=== PATIENT | female | born 1960 | race Caucasian/White ===

== ENCOUNTER 2025-01-18 13:36 | Emergency (ER) | payer MEDICAID ==
[~2025-01-18] VITALS: Ht 160 cm; Wt 69.0 kg
[~2025-01-18 13:36] MED LIST: CARB-32 MT
[2025-01-18 13:59] VITALS: O2SAT 94
[2025-01-18] MEDS ORDERED: ALBU90AE INH (15:33)
[2025-01-18 15:34] VITALS: BP 132/81; PULSE 84; RESP 18; TEMP 36.6; O2SAT 95
== END 2025-01-18 15:42 | disposition home or self-care (01) ==
LOC: ER 13:36
DX: J44.89 Other specified chronic obstructive pulmonary disease (principal); Z76.0 Encounter for issue of repeat prescription
CPT/HCPCS: 99281; 99282

== ENCOUNTER 2025-02-19 09:45 | Emergency (ER) | payer MEDICAID ==
[~2025-02-19] VITALS: Ht 160 cm; Wt 74.0 kg
[~2025-02-19 09:45] MED LIST changes: +ALBU90AE INH
[2025-02-19 10:01] VITALS: O2SAT 100
[2025-02-19] MEDS ORDERED: OLAN2.5T77 MT (10:28)
[2025-02-19] MEDS ORDERED: CITA10SO MT (10:28)
[2025-02-19] MEDS ORDERED: TIOT4MIS4 INH (10:28)
[2025-02-19] MEDS ORDERED: CARB-32 MT (10:28)
[2025-02-19 10:46] VITALS: BP 117/82; PULSE 67; RESP 16; TEMP 36.8; O2SAT 95
== END 2025-02-19 10:49 | disposition home or self-care (01) ==
LOC: ER 09:45
DX: F32.A Depression, unspecified (principal); J44.9 Chronic obstructive pulmonary disease, unspecified; G20.A1 Parkinson's disease without dyskinesia, without mention of fluctuations; Z76.0 Encounter for issue of repeat prescription; Z79.899 Other long term (current) drug therapy
CPT/HCPCS: 99281; 99283

== ENCOUNTER 2025-04-19 12:22 | Emergency (ER) | payer MEDICAID ==
[~2025-04-19] VITALS: Ht 160 cm; Wt 60.0 kg
[~2025-04-19 12:22] MED LIST changes: +CITA10SO MT; +OLAN2.5T77 MT; +TIOT4MIS4 INH
[2025-04-19 12:32] VITALS: O2SAT 99
[2025-04-19] MEDS ORDERED: CARB-32 MT (15:37)
[2025-04-19] MEDS ORDERED: OLAN2.5T77 MT (15:37)
[2025-04-19] MEDS ORDERED: CITA10TA88 MT (15:37)
[2025-04-19 16:00] VITALS: BP 132/92; PULSE 61; RESP 18; TEMP 36.9; O2SAT 99
== END 2025-04-19 16:01 | disposition home or self-care (01) ==
LOC: ER 12:22
DX: J44.9 Chronic obstructive pulmonary disease, unspecified (principal); F32.A Depression, unspecified; G20.A1 Parkinson's disease without dyskinesia, without mention of fluctuations; Z76.0 Encounter for issue of repeat prescription; Z79.899 Other long term (current) drug therapy
CPT/HCPCS: 99281

== ENCOUNTER 2025-05-21 09:00 | Emergency (ER) | payer MEDICAID ==
[~2025-05-21] VITALS: Ht 157.5 cm; Wt 68.0 kg
[~2025-05-21 09:00] MED LIST changes: +CITA10TA88 MT
[2025-05-21 09:05] VITALS: O2SAT 94
[2025-05-21] MEDS ORDERED: OLAN2.5T77 MT (09:45)
[2025-05-21] MEDS ORDERED: CITA10TA88 MT (09:45)
[2025-05-21] MEDS ORDERED: ALBU90AE INH (09:45)
[2025-05-21 09:54] VITALS: BP 127/84; PULSE 82; RESP 16; TEMP 36.7; O2SAT 97
== END 2025-05-21 09:58 | disposition home or self-care (01) ==
LOC: ER 09:00
DX: F20.9 Schizophrenia, unspecified (principal); Z76.0 Encounter for issue of repeat prescription; F32.A Depression, unspecified; F41.9 Anxiety disorder, unspecified; I10 Essential (primary) hypertension; Z55.6 Problems related to health literacy; Z59.01 Sheltered homelessness; Z79.899 Other long term (current) drug therapy
CPT/HCPCS: 71045; 93005; 99283

== ENCOUNTER 2025-06-10 09:24 | Emergency (ER) | payer MEDICAID ==
[~2025-06-10] VITALS: Ht 157.5 cm; Wt 64.0 kg
[2025-06-10 09:31] VITALS: O2SAT 95
[2025-06-10] MEDS ORDERED: CARB-32 MT (09:42)
[2025-06-10] MEDS ORDERED: ALBU90AE INH (09:42)
[2025-06-10 09:51] VITALS: BP 137/71; PULSE 93; RESP 16; TEMP 36.6; O2SAT 98
== END 2025-06-10 09:57 | disposition home or self-care (01) ==
LOC: ER 09:24
DX: G20.A1 Parkinson's disease without dyskinesia, without mention of fluctuations (principal); F20.9 Schizophrenia, unspecified; F32.A Depression, unspecified; Z76.0 Encounter for issue of repeat prescription; Z79.899 Other long term (current) drug therapy
CPT/HCPCS: 99282

== ENCOUNTER 2025-06-30 09:13 | Emergency (ER) | payer MEDICAID ==
[~2025-06-30] VITALS: Ht 160 cm; Wt 64.0 kg
[2025-06-30 09:20] VITALS: O2SAT 98
[2025-06-30] MEDS ORDERED: OLAN2.5T77 MT (10:51)
[2025-06-30] MEDS ORDERED: ALBU90AE INH (10:51)
[2025-06-30] MEDS ORDERED: CITA10TA88 MT (10:51)
[2025-06-30 11:24] VITALS: BP 140/88; PULSE 78; RESP 18; TEMP 36.7; O2SAT 98
== END 2025-06-30 11:25 | disposition home or self-care (01) ==
LOC: ER 09:13
DX: J44.89 Other specified chronic obstructive pulmonary disease (principal); F20.9 Schizophrenia, unspecified; F32.A Depression, unspecified; Z76.0 Encounter for issue of repeat prescription; Z79.899 Other long term (current) drug therapy
CPT/HCPCS: 99282